=== PATIENT | female | born 1955 | race Two or more races ===

== ENCOUNTER → 2020-08-28 08:00 | Outpatient (CLI) | payer OTHER ==
[~2020-08-28 08:00] MED LIST: EVISTA60 MG PO
== END | disposition home or self-care (01) ==
LOC: LAB 08:00 → ADM 11:45 → CIR.AMB 09-03 08:45 → EDSTATUS 09-03 11:45 → CIR.AMB 09-03 11:45
PROVIDERS: ATTEND Colon & Rectal Surgery
DX: Z20.828 Contact with and (suspected) exposure to other viral communicable diseases (principal); K64.2 Third degree hemorrhoids; K64.4 Residual hemorrhoidal skin tags; K92.2 Gastrointestinal hemorrhage, unspecified

== ENCOUNTER 2022-07-01 09:16 | Outpatient (CLI) | payer OTHER | END 2022-07-01 09:17 | disposition home or self-care (01) | LOC: SONOGRAMA 09:16 | PROVIDERS: ATTEND Pathology Anatomic Pathology & Clinical Pathology | DX: E04.1 Nontoxic single thyroid nodule (principal); D34 Benign neoplasm of thyroid gland; E06.3 Autoimmune thyroiditis ==

== ENCOUNTER 2022-09-29 05:49 | Day surgery (SDC) | payer OTHER ==
[~2022-09-29 05:49] MED LIST changes: +BONIVA150 MG PO; +COZAAR25 MG PO
== END 2022-09-29 16:50 | disposition home or self-care (01) ==
LOC: CIR.AMB 05:49
PROVIDERS: ATTEND Colon & Rectal Surgery
DX: K64.4 Residual hemorrhoidal skin tags (principal); K64.8 Other hemorrhoids; K92.2 Gastrointestinal hemorrhage, unspecified; Z88.0 Allergy status to penicillin; Z20.822 Contact with and (suspected) exposure to COVID-19